=== PATIENT | male | born 1960 | race Caucasian/White ===

== ENCOUNTER → 2022-01-25 | Outpatient (CLI) | payer OTHER, SELFPAY ==
--- NOTE | 2022-01-25 13:41 | STEWCON_ITS ---
Reason For Study: HTN Stress Results Protocol: Hector Protocol WITH DEFINITY Maximum Predicted HR: 160 bpm Target HR: 136 bpm % Maximum Predicted HR: 94 % DurationHeart Rate Stage (mm:ss) (bpm) BP Comment BASELINE 78 142/804 CC DEFINITY STAGE 1 3:00 107 182/80 STAGE 2 3:00 121 178/80SL. SOB STAGE 3 3:00 142 192/62SLIGHT INCREASE SOB STAGE 4 0:30 150 / RECOVERY 85 130/84 Stress Duration: 9:30 mm:ss Maximum Stress HR: 150 bpm Baseline Echocardiogram Findings Stress Echo Wall motion Data Resting WM Intermediate WM Stress WM ECHO/Stress Test Echo W/Contrast Interpretation Summary Exercise stress echo. 61-year-old man with a history of chest pain. Stress protocol: Resting KG demonstrates normal sinus rhythm with a rate of 75 bpm normal interv als are noted resting blood pressure is 142/80 mmHg. The patient exercised according to regular Hector protocol for 9 minutes and 31 seconds. The maximum heart rate attained was 196 bpm which was 1 22% of max impacted heart rate the maximum workload was 11.7 metabolic equivalents. At rest there w ere no ST or T wave changes noted suggest ischemia. The patient maintained sinus rhythm with short paroxysm of supraventricular tachycardia with a rate of approximately 164 bpm at peak exerc ise. No clinical angina was noted. The peak blood pressure was 192/62 mmHg which was a normal bl ood pressure response to exercise. Stress echocardiogram. Resting echocardiogram obtained with Definity enhancement demonstrated an eject ion fraction of 55%. At peak exercise there was thickening of all montez reduction of low ventricular cavity size and peaking of ejection fraction of 70%. No wall motion abnormalities were noted. Conclusion: Exercise stress echo with no EKG criteria for ischemia at a high workload. Short run of a supraventricular tachyarrhythmia which abated spontaneously. Good functional capacity. No ischemia noted. Ordering Physician: CELIO HWANG Referring Physician: CELIO HWANG Performed By: Wm, Shruti, RDCS
== END | disposition home or self-care (01) ==
LOC: CVS 13:36
DX: I10 Essential (primary) hypertension (principal); E11.9 Type 2 diabetes mellitus without complications; E78.2 Mixed hyperlipidemia; G47.33 Obstructive sleep apnea (adult) (pediatric); R06.83 Snoring; R07.9 Chest pain, unspecified
CPT/HCPCS: 93017; 93350; Q9957; A4216; C8928

== ENCOUNTER 2024-04-29 07:04 | Day surgery (SDC) | payer OTHER, SELFPAY ==
--- NOTE | 2024-04-27 17:33 | PAT.ANE_ITS ---
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 When Was Last Pacemaker Check QUESTION #4 FULL TEXT: You/Your Family Experience fever (hyperthermia) with Anesthesia Last Oral Intake Last Oral intake: Last Oral Intake NPO since Meds taken in AM with sips of water? 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 Female No 04/27/24 15:32 HX of Motion Sickness No 04/27/24 15:32 HX of N/V After Surgery No 04/27/24 15:32 Non-Smoker Yes 04/27/24 15:32 Duration of Surgery greater No 04/27/24 15:32 than 60 minutes Number of Risk Factors 1 04/27/24 15:32 PONV Score Low Risk 04/27/24 15:32 Height & Weight Height & Weight: Anesthesia: Height & Weight Height 6 ft 03/15/24 13:35 Respiratory Assessment Respiratory Assessment - home improvement installer: Respiratory Tract Infection Hx - home improvement installer Hx Respiratory Tract Infection No 04/27/24 15:32 STOP Sleep Apnea STOP Sleep Apnea - home improvement installer: STOP Sleep Apnea - home improvement installer Hx Hypertension Yes: CONTROLLED 04/27/24 15:32 Hx Sleep Apnea Yes 04/27/24 15:32 CPAP Yes 04/27/24 15:32 BIPAP No 04/27/24 15:32 Do you snore loudly (louder than talking or can be heard Do you often feel tired/ fatigued/ sleepy during daytime? Has anyone observed you stop breathing during sleep? STOP Results Positive 04/27/24 15:32 QUESTION #5 FULL TEXT : Do you snore loudly (louder than talking or can be heard through closed doors)? 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 Specify any problems Hx of Preganancy in last 3 N/A 04/27/24 15:32 Months Nurse Filling Out Transfusion [email or web address] 04/27/24 15:32 & Questions: Date: 04/27/24 04/27/24 15:32 Time: 15:34 04/27/24 15:32 Patient unable to answer at this time (ie. confused, unrespo /Reproduction History /Reproductive History - home improvement installer: /Reproductive Hx- home improvement installer Hx Now No 04/27/24 15:32 Gestational Age (in weeks): EDC: Hx Hx Para Hx Section SAB PFSH Medical History (Updated 04/27/24 @ 15:36 by Tony Malin) Restless legs Normal stress echocardiogram Pre-diabetes Personal history of colonic polyps HTN (hypertension) Home Medications ?Medication ?Instructions ?Recorded ?Last Taken ?Type amlodipine 10 mg tablet 10 mg PO QHS 03/15/24 Unknown History metformin 500 mg tablet 500 mg PO BID 03/15/24 Unknown History ropinirole 1 mg tablet 1 mg PO QHS 03/15/24 Unknown History rosuvastatin 10 mg tablet 10 mg PO QHS 03/15/24 Unknown History Allergy/AdvReac Type Severity Reaction Status Date / Time No Known Allergies Allergy Verified 04/27/24 15:30 Surgical History Hx of colonoscopy Social History (Updated 03/15/24 @ 13:31 by Meghan Sandra) household members: spouse current occupational status: employed 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
[2024-04-29] VITALS (7 sets, daily range): BP systolic 122–149; BP diastolic 79–99; PULSE 70–86; RESP 16–18; TEMP 36.3–36.6; O2SAT 95–97; BMI 32.8
--- NOTE | 2024-04-29 07:45 | PRE.ANES_ITS ---
ASA Classification* ASA Classification ASA Classification: 2 Assessment & Plan Anesthesia* Anesthesia Assessment Anesthesia Assessment: Discussed sedation and/or anesthesia options, risks, benefits, and alternatives with patient/parents/legal guardian/POA. Questions invited. The patient/parents/legal guardian/POA seems to understand and agrees to proceed with anesthesia plan. Reviewed the physical assessment, medical history, allergy history and patient home medications list prior to surgery/procedure/anesthetic and documented any changes. Performed airway and anesthesia risk assessments. 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 When Was Last Pacemaker Check QUESTION #4 FULL TEXT: You/Your Family Experience fever (hyperthermia) with Anesthesia Last Oral Intake Last Oral intake: Last Oral Intake NPO since 19:00 04/29/24 07:23 Meds taken in AM with sips of No 04/29/24 07:23 water? 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 Has anyone observed you stop breathing during sleep? STOP Results Positive 04/27/24 15:32 QUESTION #5 FULL TEXT : Do you snore loudly (louder than talking or can be heard through closed doors)? 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 Specify any problems Hx of Preganancy in last 3 N/A 04/27/24 15:32 Months Nurse Filling Out Transfusion [email or web address] 04/27/24 15:32 & Questions: Date: 04/27/24 04/27/24 15:32 Time: 15:34 04/27/24 15:32 Patient unable to answer at this time (ie. 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: /Reproductive Hx- hospitality job titles Hx Now No 04/27/24 15:32 Gestational Age (in weeks): EDC: Hx Hx Para Hx Section SAB PFSH Medical History (Updated 04/27/24 @ 15:36 by Tony Malin) Restless legs Normal stress echocardiogram Pre-diabetes Personal history of colonic polyps HTN (hypertension) Home Medications ?Medication ?Instructions ?Recorded ?Last Taken ?Type amlodipine 10 mg tablet 10 mg PO QHS 03/15/24 Unknown History metformin 500 mg tablet 500 mg PO BID 03/15/24 Unknown History ropinirole 1 mg tablet 1 mg PO QHS 03/15/24 Unknown History rosuvastatin 10 mg tablet 10 mg PO QHS 03/15/24 Unknown History Allergy/AdvReac Type Severity Reaction Status Date / Time No Known Allergies Allergy Verified 04/27/24 15:30 Surgical History Hx of colonoscopy Social History (Updated 03/15/24 @ 13:31 by Meghan Sandra) household members: spouse current occupational status: employed 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
[2024-04-29 07:56] LABS: Bedside Glucose 99 mg/dL (74-106)
--- NOTE | 2024-04-29 08:33 | PCM.HP.STD ---
[facility] - General General Date of Admission: 04/29/24 Date of Service: 04/29/24 Chief Complaint: Surveillance colonoscopy HPI Narrative SAM DECKER, is a 64 M who presents today for a surveillance colonoscopy. He had a 2 other colonoscopies in the past. His first colonoscopy had multiple polyps his second colonoscopy did not have any polyps. He comes in today for surveillance colonoscopy. He has past medical history of hypercholesterolemia, type 2 diabetes and mild hypertension which are all controlled with medicines. [facility] Medical History Restless legs Normal stress echocardiogram Pre-diabetes Personal history of colonic polyps HTN (hypertension) Home Medications ?Medication ?Instructions ?Recorded ?Last Taken ?Type amlodipine 10 mg tablet 10 mg PO QHS 03/15/24 Unknown History metformin 500 mg tablet 500 mg PO BID 03/15/24 Unknown History ropinirole 1 mg tablet 1 mg PO QHS 03/15/24 Unknown History rosuvastatin 10 mg tablet 10 mg PO QHS 03/15/24 Unknown History Allergy/AdvReac Type Severity Reaction Status Date / Time No Known Allergies Allergy Verified 04/27/24 15:30 Surgical History Hx of colonoscopy Social History household members: spouse current occupational status: employed 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 Smoking Status: Never smoker alcohol intake: current details: rare alcohol substance use type: does not use ROS Constitutional Constitutional: Denies fatigue, fever(s), poor appetite, weight gain or weight loss Gastrointestinal Gastrointestinal: Denies belching, bloating, change in bowel habits, change in stool character, chewing difficulty, coffee ground emesis, constipation, cramping, diarrhea, dyspepsia, dysphagia, early satiety, excessive flatus, fecal incontinence, heartburn, hematemesis, hematochezia, hemorrhoids, loose stools, melena, nausea, odynophagia, rectal bleeding, tenesmus, vomiting or weight changes Vital Signs Vital Signs Vital Signs: 04/29/24 07:23 04/29/24 07:23 04/29/24 07:46 Temperature 97.6 F L 97.6 F L Temperature Source Temporal Pulse Rate 70 70 Respiratory Rate 16 16 Respiratory Pattern Normal Blood Pressure 149/87 H 149/87 H Blood Pressure Mean 107 Blood Pressure Source Monitor Blood Pressure Position Semi-Fowlers Blood Pressure Location Left Arm Pulse Ox 95 95 Oxygen Delivery Method Room Air Weight Weight: 242 lb 8.136 oz Body Mass Index (BMI) 32.8 Physical Exam Const alert, oriented x3, no apparent distress and healthy appearing General Appearance: cooperative GI normal to inspection, nondistended, normoactive bowel sounds, soft to palpation, non-tender and non-distended Percussion: normal to percussion Rectal Exam: deferred Results Lab / Micro Data Labs: Laboratory Results - last 24 hr 04/29/24 07:31: POC Glucose 99 Assessment & Plan Assessment/Plan (1) Encounter for screening for malignant neoplasm of colon: PLAN: He was explained alternatives including not withstanding bleeding, infection, sepsis, perforation, need for emergent surgery and . He will have an ASA of 3.
--- NOTE | 2024-04-29 09:03 | OP.CCLET_ITS ---
04/29/2024 Ramon Mcmullen Do Re : Colonoscopy procedure for Ernesto Goldstein Dear Benedict This procedure was performed on April. My impressions and recommendations are as follows: Impressions : - Diverticulosis in the recto-sigmoid colon and in the sigmoid colon. - The examination was otherwise normal on direct and retroflexion views. - No specimens collected. Recommendations : - Discharge patient to home. - Resume previous diet. - Continue present medications. - Repeat colonoscopy in 5 years for surveillance. My findings are described in the full procedure note, which is enclosed. If I can be of further assistance, please feel free to contact me at . Sincerely, Izaiah Stark, 04/29/2024 9:02:31 AM This report has been signed electronically.
--- NOTE | 2024-04-29 09:03 | OP.COLON_ITS ---
Patient Name: Ernesto Goldstein Procedure Date: 04/29/2024 8:41 AM Date of : 1960 Age: 64 Procedure: Colonoscopy Indications: High risk colon cancer surveillance: Personal history of colonic polyps Providers: Izaiah Stark DO Referring MD: Ramon Mcmullen Do Medicines: Monitored Anesthesia Care Patient Profile: This is a 64 year old male. Refer to note in patient chart for documentation of history and physical. Last Colonoscopy: 5 years ago. Complications: No immediate complications. Procedure: Pre-Anesthesia Assessment: - Prior to the procedure, a History and Physical was performed, and patient medications and allergies were reviewed. The patient is competent. The risks and benefits of the procedure and the sedation options and risks were discussed with the patient. All questions were answered and informed consent was obtained. Patient identification and proposed procedure were verified by the physician in the pre-procedure area. Mental Status Examination: alert and oriented. Airway Examination: normal oropharyngeal airway and neck mobility. Respiratory Examination: clear to auscultation. CV Examination: normal. Prophylactic Antibiotics: The patient does not require prophylactic antibiotics. Prior Anticoagulants: The patient has taken no anticoagulant or antiplatelet agents except for NSAID medication. ASA Grade Assessment: III - A patient with severe systemic disease. After reviewing the risks and benefits, the patient was deemed in satisfactory condition to undergo the procedure. The anesthesia plan was to use monitored anesthesia care (MAC). Immediately prior to administration of medications, the patient was re-assessed for adequacy to receive sedatives. The heart rate, respiratory rate, oxygen saturations, blood pressure, adequacy of pulmonary ventilation, and response to care were monitored throughout the procedure. The physical status of the patient was re-assessed after the procedure. After I obtained informed consent, the scope was passed under direct vision. Throughout the procedure, the patient's blood pressure, pulse, and oxygen saturations were monitored continuously. The colonoscope was introduced through the anus and advanced to the cecum, identified by appendiceal orifice and ileocecal valve. The colonoscopy was performed without difficulty. The patient tolerated the procedure well. The quality of the bowel preparation was adequate. The ileocecal valve, appendiceal orifice, and rectum were photographed. Scope In: 8:47:02 AM Scope Withdrawal Time 0 hours 9 minutes 0 seconds Scope Out: 8:58:48 AM Total Procedure Duration Time 0 hours 11 minutes 46 seconds Findings: The perianal and digital rectal examinations were normal. A few small-mouthed diverticula were found in the recto-sigmoid colon and sigmoid colon. The exam was otherwise without abnormality on direct and retroflexion views. Impression: - Diverticulosis in the recto-sigmoid colon and in the sigmoid colon. - The examination was otherwise normal on direct and retroflexion views. - No specimens collected. Recommendation: - Discharge patient to home. - Resume previous diet. - Continue present medications. - Repeat colonoscopy in 5 years for surveillance. Procedure Code(s): --- Professional --- 75319, Colonoscopy, flexible; diagnostic, including collection of specimen(s) by brushing or washing, when performed (separate procedure) CPT copyright 2021 [employer]. All rights reserved. The codes documented in this report are preliminary and upon truck rental clerk review may be revised to meet current compliance requirements. Izaiah Stark DO 04/29/2024 9:02:31 AM This report has been signed electronically. Number of Addenda: 0 Note Initiated On: 04/29/2024 8:41 AM
--- NOTE | 2024-04-29 09:12 | PCM.POST.ANE ---
Anesthesia: Postop Eval I Current Vital Signs Temperature: 97.9 F Pulse Rate: 84 Blood Pressure: 122/84 Respiratory Rate: 16 Pulse Ox: 97 Oxygen Delivery Method: Room Air Assessment Airway patent: Yes Spontaneous unlabored respirations: Yes Mental status: Awake and Calm nausea: No Vomiting: No Anesthesia Complication: Yes Anesthesia Complication Comment:: profound restless legs Fluid Hydration Crystalloid volume administer (ml): 50 Total IV fluid infused: 50 Progress Note Anesthesia document: Postop Eval 1 completed: Yes
--- NOTE | 2024-04-30 07:32 | PCM.POSTANE2 ---
Anesthesia Postop Eval I Sum Postop Eval Completion status Anesthesia document: Postop Eval 1 completed: Yes Anesthesia Postop Eval I Summary Anesthesia Postop Eval I Summary: Anesthesia Postop Eval I: Assessment Summary Airway patent Yes 04/29/24 09:13 [email or web address] Spontaneous unlabored Yes 04/29/24 09:13 [email or web address] respirations Mental status Awake,Calm 04/29/24 09:13 [email or web address] nausea No 04/29/24 09:13 [email or web address] Vomiting No 04/29/24 09:13 [email or web address] Anesthesia Postop Eval I: Fluid Summary Crystalloid volume administer 50 04/29/24 09:13 [email or web address] (ml) Colloids volume administered ( ml) Blood Product volume administered (ml) Total IV fluid infused 50 04/29/24 09:13 [email or web address] Anesthesia Postop Eval I: Summary Notes Anesthesia Complication Yes 04/29/24 09:13 [email or web address] Anesthesia Complication profound restless 04/29/24 09:13 [email or web address] Comment: legs Post-operative progress note Anesthesia: Postop Eval II Evaluation Mental status: Awake Pain Level: 0 nausea: No Vomiting: No
== END 2024-04-29 09:35 | disposition home or self-care (01) ==
LOC: EN 07:05 → AC 07:06
PROVIDERS: PCP Family Medicine; Referring Provider Family Medicine; Visit Provider Internal Medicine Gastroenterology
PROC: 0DJD8ZZ Inspection of Lower Intestinal Tract, Via Natural or Artificial Opening Endoscopic (ICD-10-PCS; CPT 45378; principal; 2024-04-29 07:55)
DX: Z12.11 Encounter for screening for malignant neoplasm of colon (principal); E11.9 Type 2 diabetes mellitus without complications; Z86.0100 Personal history of colon polyps, unspecified; K57.30 Diverticulosis of large intestine without perforation or abscess without bleeding; Z79.84 Long term (current) use of oral hypoglycemic drugs; E78.00 Pure hypercholesterolemia, unspecified; I10 Essential (primary) hypertension; Z79.899 Other long term (current) drug therapy
CPT/HCPCS: 45378; 82962; A4216; J2405

== ENCOUNTER 2024-05-31 09:00 | Outpatient (RCR) | payer OTHER, SELFPAY ==
--- NOTE | 2024-05-17 08:16 | HP.PTEVAL_ITS ---
Patient's Visit Information Visit Information Visit Information: SAM DECKER is a 64 year old M referred to Physical Therapy by CELIO HWANG DO with a diagnosis of L knee pain. Date of Evaluation: 05/14/24 Physical Therapist: Richard Jimenez DPT Visit Plan Frequency: 2x /Week Duration: 6 Weeks Plan: 1) progress L knee ROM to full without increase in symptoms. 2) BLE strengthening, avoid deep squats, lunges and any twisting motions to knee. 3) ice/vaso as needed for pain control Subjective Subjective: Pt. is here today for his initial evaluation with diagnosis of L knee pain. Pt. reports having L knee pain for a few months. He reports having periods where his knee improves then he tried to work out again the other day and has severe pain to where he was using a FWW to offload his L knee. He is able to walk now, but does have continued pain. 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 Pt. denies N/T. He twisted his knee when he was walking, mech of injury. He is going on a trip in a few weeks and would like to be able to walk better by then. He is hopeful to reduce symptoms in order to get back to all work and recreational activities without limitations. Pain L knee: Pain Intensity (Out of 10): 4 Pain Intensity Range: 2 and 6 Objective Objective: POSTURE: Pt. has slight wt. shift to R side in stance. Normal knee varus and valgus in stance. PALPATION: Pt has tenderness at medial joint line, but not severe. Slight edema noted. NEURO: Pt has normal sensation to light and sharp touch. Normal DTR of BLEs. Pt. is able to rise on heels and toes without issues. ROM: R Knee: 0-0-138deg. L knee 0-4-118deg. Pt. reports pain at end ranges. MMT: PT. has close to full strength in BLEs, except L quad. R knee ext 45.7#, flexion 28.3#. L knee: ext 23.9# increase NW, flexion 26.8# NE. PT. has normal hip strength bilaterally. GAIT: PT. has slight antalgic pattern, during L stance phase with L lateral lean. Pt. reports mild increase in symptoms. STAIRS: Pt. has increased pain with loading LLE, worse with descending. Special Tests L Knee Fernando - Meniscus: Positive L Knee Disco Test - Meniscus: Positive L Knee Anterior Drawer - ACL: Negative L Knee Posterior Drawer - PCL: Negative L Knee Valgus - MCL: Negative L Knee Varus - LCL: Negative L Knee Patellar Apprehension - PFS: Negative Balance/Special Test Scores Lower Extremity Functional Score: 43 Goals Goal 1:: LTG: Pt. to be I with HEP. Goal Time Frame: 4-6 Weeks Goal 2:: STG: Pt. to have increased ROM to full without increase in L knee pain. Goal Time Frame: 2-4 Weeks Goal 3:: STG: Pt. ambulate with normal gait pattern without increase in symptoms. Goal Time Frame: 2-4 Weeks Goal 4:: LTG: Pt. to have symmetrical BLE quad strength. Goal Time Frame: 4-6 Weeks Goal 5:: LTG: Pt. to negotiate steps with reciprocal pattern without increase in L knee pain. Goal Time Frame: 4-6 Weeks Goal 6:: LTG: Pt. to resume all recreational walking and gym activities without increase in L knee pain. Goal Time Frame: 4-6 Weeks Rehabilitation Potential Physical Therapy Diagnosis: Pt. has signs and symptoms consistent with L knee pain. Due to mech of injury, and special testing, I start to question meniscal pathology. He has started to feel a little bit better, but still has difficulty with ROM, strength and general mobility. He would benefit from PT to restore his ROM , reduced edema and improve his strength. Rehabilitation Potential: Good Anticipated Interventions Patient/Client Instruction: Educate patient on: Condition, Plan of Care, Risk Factors and Benefits of Fitness Program For the Purpose of:: To foster healthy habits, To improve decision making, To facilitate caregiver knowledge, To improve self management and To prevent re- injury Therapeutic Exercise to Include: Strength training, Power training, Endurance training, Balance training, Body mechanics, Postural training, Flexibilty training and Gait and locomotor training For the Purpose of:: To decrease pain, To decrease swelling/inflammation, To increase ROM, To improve nutrient delivery to tissue, To increase oxygenation perfusion, To improve muscle performance and motor function, To improve ability to perform ADL's and To increase flexibility/ROM IF ES: Yes Cryotherapy (ice pack, ice massage): Yes Vasopneumatic device: Yes For the Purpose of:: To decrease pain, To decrease swelling/inflammation, To increase ROM and To improve nutrient delivery to tissue Text: Thank you for the opportunity to evaluate your patient. For Medicare and Medicare HMO plans, please review the plan of care and approve it. It will need to be FAXED BACK to us at [phone] for Medicare purposes. For Medicare only, by signing this I certify the plan of care. Please let me know if there are questions or concerns regarding this plan of care. Physician Signature: Date:
--- NOTE | 2024-05-31 09:22 | HP.PTDCSUM ---
Discharge Summary D/C summary: It has been my pleasure to treat SAM DECKER referred by CELIO HWANG DO, with the diagnosis of L knee pain for a total of 6 visit(s). Discharge Date: 05/31/24 Please see the following information for a summary of their discharge status. Subjective Subjective: Pt. reports being95% better overall. He has no pain currently. Pt. did have an injection as well. Pt. reports that he does have some LBP, but no radicular symptoms noted. Pain L knee: Pain Intensity (Out of 10): 0 Overall Improvement % Improvement: 95 Objective Objective/Function: ROM: L knee 0-0-124deg. No pain. Pt. has good HS length as well. MMT: PT. has symmetrical BLE strength without increase in symptoms Pt. has normal gait pattern. PT. does have some R sided upper lumbar symptoms. Pt. reports no radicular symptoms noted. Pt. has no marked myotomal weakness as well. STAIRS: normal without issues. Pt. does have some slight pain with R sided bending, but other wiley normal. He reports most of his symptoms are at time. I talked to him about doing some lumbar extension exercises then if not improving to talk to physician about his symptoms. Goals Goal 1:: LTG: Pt. to be I with HEP. Goal Progress: Goal Met Goal 2:: STG: Pt. to have increased ROM to full without increase in L knee pain. Goal Progress: Goal Met Goal 3:: STG: Pt. ambulate with normal gait pattern without increase in symptoms. Goal Progress: Goal Met Goal 4:: LTG: Pt. to have symmetrical BLE quad strength. Goal Progress: Goal Met Goal 5:: LTG: Pt. to negotiate steps with reciprocal pattern without increase in L knee pain. Goal Progress: Goal Met Goal 6:: LTG: Pt. to resume all recreational walking and gym activities without increase in L knee pain. Goal Progress: Goal Met Plan Plan: PT. to be DC from PT at this point in time. Pt. has met all goals at this point in time. D/C Information Discharge Comments: All goals met. d/c sentence: If there are questions or concerns regarding this patient's physical therapy, please feel free to call me at [phone]. Thank you for the referral of this patient. Sincerely, Richard L Sipos, DPT Balance/Gait/Functional tests Balance/Special Test Scores Lower Extremity Functional Score: 80 Improvement % Improvement: 95
== END 2024-05-31 19:00 | disposition home or self-care (01) ==
LOC: PT 09:00
PROVIDERS: PCP Family Medicine; Referring Provider Family Medicine; Visit Provider Family Medicine
DX: M25.562 Pain in left knee (principal)
CPT/HCPCS: 97110; 97161; 97530